=== PATIENT | female | born 1975 | race Caucasian/White ===

== ENCOUNTER 2025-04-30 08:12 | Emergency (ER) | payer MEDICAID ==
[~2025-04-30] VITALS: Ht 162.6 cm; Wt 60.0 kg
[2025-04-30 08:14] VITALS: O2SAT 99
[2025-04-30] MEDS: DIPHENHYDRAMINE 50MG/ML VIAL IM SCH (08:53)
[2025-04-30] MEDS: FAMOTIDINE 20MG/2ML VIAL IV SCH (08:54)
[2025-04-30] MEDS: METHYLPREDNISOLONE SOD SUCC 125MG/2ML (ACT-O-VIAL) IV SCH (08:54)
[2025-04-30] MEDS ORDERED: DIPH25CA83 PO (10:28)
[2025-04-30] MEDS ORDERED: P50 PO (10:28)
[2025-04-30] MEDS ORDERED: EPIN0.3P3 IM (10:28)
[2025-04-30 10:41] VITALS: BP 137/76; PULSE 84; RESP 13; TEMP 36.7; O2SAT 100
== END 2025-04-30 10:50 | disposition home or self-care (01) ==
LOC: ER 08:12
DX: T78.40XA Allergy, unspecified, initial encounter (principal); I10 Essential (primary) hypertension; X58.XXXA Exposure to other specified factors, initial encounter
CPT/HCPCS: 96372; 96374; 96375; 99284; J1200; J1308; J2919; Z7610 ×4; A4606